=== PATIENT | male | born 1995 | race Two or more races ===

== ENCOUNTER 2018-11-20 16:06 | Emergency (ER) | payer OTHER ==
[~2018-11-20] VITALS: Ht 170.2 cm; Wt 79.4 kg
[2018-11-20 16:15] VITALS: BP 116/98
== END 2018-11-20 16:22 ==
LOC: ER 16:09
DX: Z02.89 Encounter for other administrative examinations (principal); Y08.89XA Assault by other specified means, initial encounter; Y93.89 Activity, other specified; Y92.89 Other specified places as the place of occurrence of the external cause; Y99.8 Other external cause status